=== PATIENT | female | born 1965 | race Caucasian/White ===

== ENCOUNTER 2021-05-09 16:47 | Emergency (ER) | payer OTHER ==
[~2021-05-09] VITALS: Ht 170.2 cm; Wt 70.3 kg
[2021-05-09 17:16] LABS: BASOPHILS ABSOLUTE AUTO 0.03 K/mm3 (0.00-0.23); BASOPHILS PERCENT AUTO 0 % (0-2); EOSINOPHILS PERCENT AUTO 0 % (0-6); Hematocrit 40.1 % (33.0-51.0); Hemoglobin 13.3 g/dL (11.5-16.0); IMMATURE GRAN ABSOLUTE AUTO 0.05 K/mm3 (0.00-0.10); IMMATURE GRAN PERCENT AUTO 0 % (0-1); LYMPHOCYTES ABSOLUTE AUTO 0.76 K/mm3 (0.84-5.20); LYMPHOCYTES PERCENT AUTO 5 % (21-46); MONOCYTES ABSOLUTE AUTO 0.77 K/mm3 (0.16-1.47); MONOCYTES PERCENT AUTO 5 % (4-13); Mean Corpuscular HGB 28.5 pg (26.0-34.0); Mean Corpuscular HGB Conc 33.2 g/dL (31.5-36.5); Mean Corpuscular Volume 86 fL (80-100); Mean Platelet Volume 9.1 fL (9.1-12.4); NEUTROPHILS ABSOLUTE AUTO 13.62 K/mm3 (1.96-9.15); NEUTROPHILS PERCENT AUTO 89 % (41-73); Platelet Count 263 K/mm3 (150-400); Red Blood Cell Count 4.66 M/mm3 (3.80-5.20); White Blood Cell Count 15.23 K/mm3 (4.00-11.30)
[2021-05-09 17:50] LABS: Alanine Aminotransfer (ALT/SGP 24 U/L (12-78); Albumin, Blood 3.9 g/dL (3.4-5.0); Albumin/Globulin Ratio 1.1 (0.8-1.8); Alk Phos 58 U/L (50-136); Anion Gap 6 mmol/L (6-16); Aspartate Aminotrans (AST/SGOT 19 U/L (12-37); Beta HCG, Quantitative, Serum 3 mIU/mL (0-3); Bilirubin, Total 1.1 mg/dL (0.1-1.0); Blood Urea Nitrogen 21 mg/dL (8-24); Bun/Creatinine Ratio 24.4 (12.0-20.0); CO2, Blood 24 mmol/L (21-32); Calcium, Blood 9.1 mg/dL (8.5-10.1); Chloride, Blood 110 mmol/L (98-108); Creatinine, Blood 0.86 mg/dL (0.40-1.00); Globulin, Blood 3.5 g/dL (2.2-4.0); Glomerular Filtration Rate >60 (60-); Glucose, Blood 123 mg/dL (70-99); Potassium, Blood 3.8 mmol/L (3.5-5.5); Sodium, Blood 140 mmol/L (136-145); Total Protein, Blood 7.4 g/dL (6.4-8.2)
[2021-05-09] MEDS ORDERED: ONDA4ODT MM (18:46)
[2021-05-09] MEDS ORDERED: Norco 5-325 Ta1 EACH PO (18:46)
== END 2021-05-09 19:10 | disposition home or self-care (01) ==
LOC: ER 16:47
PROVIDERS: Physician Assistant
DX: S32.049A Unspecified fracture of fourth lumbar vertebra, initial encounter for closed fracture (principal); S01.01XA Laceration without foreign body of scalp, initial encounter; S00.11XA Contusion of right eyelid and periocular area, initial encounter; S22.32XA Fracture of one rib, left side, initial encounter for closed fracture; R55 Syncope and collapse; W17.89XA Other fall from one level to another, initial encounter; Y93.01 Activity, walking, marching and hiking; Y92.828 Other wilderness area as the place of occurrence of the external cause
CPT/HCPCS: 12002; 70450; 71260; 72125; 74177; 80053; 84702; 85025; 93005; 93010; 96374-59; 99284-25; J1170; Q9967